=== PATIENT | female | born 1955 | race Caucasian/White ===

== ENCOUNTER 2022-10-17 14:46 | Outpatient (CLI) | payer OTHER, SELFPAY ==
--- NOTE | 2022-10-17 15:00 | MM_ITS ---
WS: [id number] BILATERAL 3D TOMOSYNTHESIS DIGITAL SCREENING MAMMOGRAPHY WITH CAD CLINICAL INFORMATION: screening HISTORY: Screening mammogram. No current complaints. COMPARISON: None. TECHNIQUE: Bilateral CC and MLO views. FINDINGS: Scattered fibroglandular densities bilaterally. No suspicious focal mass, asymmetry, calcifications, or architectural distortion. No evidence of malignancy. A few incidental punctate calcifications. MM/[place] [id number] IMPRESSION: BI-RADS: 2-Benign FOLLOW UP: 1 Year Follow-up Recommend return to annual screening mammography.
== END 2022-10-17 14:47 | disposition home or self-care (01) ==
PROVIDERS: PCP Family Medicine; Visit Provider Family Medicine
DX: Z12.31 Encounter for screening mammogram for malignant neoplasm of breast (principal)
CPT/HCPCS: 77063; 77067

== ENCOUNTER → 2024-05-26 15:54 | Outpatient (BNVA) | payer MEDICARE, OTHER, SELFPAY | PROVIDERS: PCP Family Medicine; Visit Provider Family Medicine | DX: I10 Essential (primary) hypertension (principal) | CPT/HCPCS: 80053; 80061 ==

== ENCOUNTER 2024-07-14 05:46 | Day surgery (SDC) | payer MEDICARE, OTHER, SELFPAY ==
[2024-07-14] VITALS (10 sets, daily range): BP systolic 131–180; BP diastolic 55–91; PULSE 73–86; RESP 14–22; TEMP 36.3–37; O2SAT 93–99
--- NOTE | 2024-07-14 04:22 | W.PM.OPSFHP ---
Same Day Surgery H&P Indication for Procedure/HPI DATE OF PROCEDURE: July 14, 2024 CHIEF COMPLAINT/INDICATIONFOR SURGICAL PROCEDURE: abnormal uterine bleeding PREOP DIAGNOSIS: abnormal uterine bleeding PLANNED PROCEDURE: Operation Date: 07/14/24 07:00 Proposed Procedures p Hysteroscopy Hysteroscopy w/ Endometrial Sampling 61017, N93.9(Not Applicable) - Ranjit Ponce MD s Poylpectomy(Not Applicable) - Ranjit Ponce MD 68 y.o. continues to have periodic bleeding now scheduled for hysteroscopy, endometrial sampling, possible endometrial polypectomy Medications/Allergies* Home Medications Medication Instructions Recorded Confirmed Type amlodipine 10 mg tablet 10 mg PO DAILY 07/13/24 07/13/24 History losartan 100 mg tablet 100 mg PO DAILY 07/13/24 07/13/24 History montelukast 10 mg tablet 10 mg PO DAILY 07/13/24 07/13/24 History omeprazole 20 mg capsule,delayed 20 mg PO DAILY 07/13/24 07/13/24 History release Allergies/Adverse Reactions Allergy/AdvReac Type Severity Reaction Status Date / Time codeine Allergy Intermediate stomach Verified 07/13/24 09:50 pain Pertinent History/Comorbid Conditions* Medical History (Updated 06/15/24 @ 19:44 by Bob Burris MD) Diabetes mellitus Hypertension Social History Smoking and tobacco/nicotine status: unknown if used tobacco/nicotine Pertinent Exam Findings alert, oriented x 3, clear to auscultation bilaterally and regular rate & rhythm Pertinent Data Pelvic sono 06-14-24 uterus 8.9 x 4.6 x 5.7 cm Endometrium 3.3 cm Ovaries not visualized Recommendations Surgery/Procedure today Coding Level of Care Code Acute Code for Chg Fwd Time Spent (min) 20
[2024-07-14] MEDS: sodium chloride 0.9% 1,000 ML 30 ML IV (06:06)
--- NOTE | 2024-07-14 06:42 | P.ANESASSM_ITS ---
Pre-Anesthetic Assessment Height/Weight: Height 1.65 m Weight 104.326 kg Temp Pulse Resp BP Pulse Ox O2 Del Method 97.4 F L 86 18 180/91 94 Room Air 07/14/24 06:01 07/14/24 06:01 07/14/24 06:01 07/14/24 06:01 07/14/24 06:01 07/14/24 06:01 Preop Diagnosis: abnormal uterine bleeding Operation Date: 07/14/24 07:00 Proposed Procedures p Hysteroscopy Hysteroscopy w/ Endometrial Sampling 93367, N93.9(Not Applicable) - Ranjit Ponce MD s Poylpectomy(Not Applicable) - Ranjit Ponce MD Familial anesthetic complications: None Was Beta Kaylin taken within 24 hours: N/A Was Clonidine taken within 24 hours: N/A Last intake: Intake Last Liquid Date 07/13/24 Last Liquid Time 19:00 Last Solid Date 07/13/24 Last Solid Time 15:00 Social No alcohol and No tobacco Exam alert, oriented x 3, clear to auscultation bilaterally and regular rate & rhythm Airway Mallampati: Class II Dentition: partials Pulmonary Asthma CV/HEM Hypertension Metabolic Diabetes Mellitus and Morbid Obesity Anesthetic Plan ASA status: 3 Anesthesia: General Risk of > 500 ml blood loss (7ml/kg in children): No Medications/Allergies Home Medications Medication Instructions Recorded Confirmed Last Taken Type albuterol sulfate 90 mcg/actuation 2 puff inhalation Q6H PRN 09/24/22 07/13/24 Unknown Rx aerosol inhaler (Ventolin HFA) shortness of breath or wheezing #8.5 grams amlodipine 10 mg tablet 10 mg PO DAILY 07/13/24 07/14/24 07/13/24 History losartan 100 mg tablet 100 mg PO DAILY 07/13/24 07/14/24 07/14/24 History montelukast 10 mg tablet 10 mg PO DAILY 07/13/24 07/14/24 07/13/24 History omeprazole 20 mg capsule,delayed 20 mg PO DAILY 07/13/24 07/14/24 07/13/24 Hi story release Allergies Allergy/AdvReac Type Severity Reaction Status Date / Time codeine Allergy Intermediate stomach Verified 07/13/24 09:50 pain Current Medications Generic Name Dose Route Start Last Admin Trade Name Freq PRN Reason Stop Dose Admin Sodium Chloride 1,000 mls @ 30 mls/hr 07/14/24 06:00 07/14/24 06:06 Sodium Chloride 0.9% IV 07/15/24 05:59 30 mls/hr .Q24H BOB Administration PFSH Anesthesia Medical History (Updated 06/15/24 @ 19:44 by Bob Burris MD) Diabetes mellitus Hypertension Social History Smoking and tobacco/nicotine status: unknown if used tobacco/nicotine Data Anesthesia Cardiac Studies: No Data to Display
--- NOTE | 2024-07-14 06:47 | W.PM.OPSUD ---
Surgery/Procedure H&P Update DATE OF PROCEDURE: July 14, 2024 DATE H&P PERFORMED: 07/14/24 H&P UPDATE INFORMATION: I have reviewed H&P completed within last 30 days, I have examined patient prior to procedure and No changes to prior documentation PREOP DIAGNOSIS: abnormal uterine bleeding PLANNED PROCEDURE: Operation Date: 07/14/24 07:00 Proposed Procedures p Hysteroscopy Hysteroscopy w/ Endometrial Sampling 14057, N93.9(Not Applicable) - Ranjit Ponce MD s Poylpectomy(Not Applicable) - Ranjit Ponce MD
--- NOTE | 2024-07-14 08:35 | PM.OP ---
Operative Report Date of procedure: July 14, 2024 Pre-op diagnosis: abnormal uterine bleeding Post-op diagnosis: same Post-op findings: Uterus sounded to 8 cm Copious amount of endometrial tissue No polyps / fibroids Procedure done: hysteroscopy Curettage of uterus Specimens removed/disposition: endometrial curettings Surgeon: Ranjit Ponce MD Anesthesia: MAC Estimated blood loss (mL): 0 Complications: none Findings: Uterus sounded to 8 cm Copious amount of endometrial tissue No polyps / fibroids Condition: stable Disposition: PACU Brief History: 68 y.o. with abnormal uterine bleeding Procedure: Informed consent signed. Patient was taken to the operating room. Anesthesia was induced. Patient was placed in dorsolithotomy position, prepped and draped for hysteroscopy. A bivalve speculum was placed in the vagina. The anterior lip of the cervix was grasped with a sharp-toothed tenaculum. The cervix was serially dilated with Hegar dilators. . A hysteroscope was placed into the endometrial cavity. The endometrial cavity was seen to continue copious amount of endometrial tissue. There were no polyps or fibroids. The hysteroscope was then removed. Endometrial curettage was done with a sharp curette. Endometrial tissue was sent to pathology. The sharp-toothed tenaculum was removed. There was no bleeding from the endometrial cavity or cervix. The patient was then placed supine and awakened and taken to the PACU. Postop condition: stable EBL: none Sponge and instruments counts were normal x 2 Complications: none
--- NOTE | 2024-07-14 08:45 | ANE.PACU2 ---
Inpatient post-anesthesia follow up: Airway intact: Yes Vital signs: Temperature 98.6 F Pulse Rate 73 Respiratory Rate 16 Blood Pressure 131/76 Pulse Oximetry 95 Oxygen Delivery Me thod Room Air Oxygen Flow Rate 6 Fraction of Inspir ed Oxygen Hydration adequate: Yes Nausea and vomiting: No Pain level: 1 Mental status: Baseline
== END 2024-07-14 08:45 | disposition home or self-care (01) ==
PROVIDERS: PCP Family Medicine; Visit Provider Obstetrics & Gynecology
PROC: 0UJD8ZZ Inspection of Uterus and Cervix, Via Natural or Artificial Opening Endoscopic (ICD-10-PCS; CPT 58555; principal; 2024-07-14 07:00)
DX: N85.02 Endometrial intraepithelial neoplasia [EIN] (principal); N93.9 Abnormal uterine and vaginal bleeding, unspecified; E11.9 Type 2 diabetes mellitus without complications; E66.01 Morbid (severe) obesity due to excess calories; I10 Essential (primary) hypertension; Z79.899 Other long term (current) drug therapy; Z88.5 Allergy status to narcotic agent; Z68.38 Body mass index [BMI] 38.0-38.9, adult
CPT/HCPCS: 58558; 88305; J1100; J2250; J2405; J2704; J3010; J7030

== ENCOUNTER → 2024-07-27 09:41 | Outpatient (BNVA) | payer MEDICARE, OTHER, SELFPAY | PROVIDERS: PCP Family Medicine; Visit Provider Family Medicine | DX: E11.9 Type 2 diabetes mellitus without complications (principal) | CPT/HCPCS: 83036 ==

== ENCOUNTER → 2024-10-27 09:56 | Outpatient (BNVA) | payer OTHER, MEDICARE, SELFPAY | PROVIDERS: PCP Family Medicine; Visit Provider Family Medicine | DX: E11.9 Type 2 diabetes mellitus without complications (principal) | CPT/HCPCS: 80053; 83036 ==

== ENCOUNTER → 2025-01-26 09:48 | Outpatient (BNVA) | payer OTHER, MEDICARE, SELFPAY | PROVIDERS: PCP Family Medicine; Visit Provider Family Medicine | DX: I10 Essential (primary) hypertension (principal); E11.9 Type 2 diabetes mellitus without complications | CPT/HCPCS: 80053; 80061; 83036 ==

== ENCOUNTER → 2025-06-01 09:38 | Outpatient (BNVA) | payer OTHER, MEDICARE, SELFPAY | PROVIDERS: PCP Family Medicine; Visit Provider Family Medicine | DX: I10 Essential (primary) hypertension (principal); E11.9 Type 2 diabetes mellitus without complications; M19.90 Unspecified osteoarthritis, unspecified site | CPT/HCPCS: 80053; 80061; 83036; 85025 ==